=== PATIENT | female | born 1945 | race Caucasian/White ===

== ENCOUNTER 2023-06-29 11:50 | Outpatient (CLI) | payer MEDICARE ==
--- NOTE | 2023-06-29 12:22 | XRAY Report ---
PROCEDURE: Hip w/Pelvis 2-3V RT INDICATIONS: RIGHT HIP PAIN TECHNIQUE: AP pelvis with lateral view(s) of the right hip(s). COMPARISON: None. FINDINGS: Bones: Bilateral femoral intramedullary ector and dynamic screw fixation. Where visualized, the hardwa re appears intact without surrounding lucency or fracture. No acute fractures or dislocations. No hurley spicious bony lesions. Degenerative changes of the visualized lower lumbar spine , sacroiliac joints and pubic symphysis. There is a 2.8 cm chronic osseous fragment adjacent to the left acetabulum withi n the soft tissues, likely sequela of prior trauma or surgery. Soft tissues: No suspicious soft tissue calcifications or masses. IMPRESSION: Bilateral femoral intramedullary ector and dynamic screw fixation. The hardware appears intact where vi sualized without evidence of complication. No acute osseous abnormalities. Reviewed by: Desean Joe MD on 06/29/2023 12:20 PM PDT Approved by: Desean Joe MD on 06/29/2023 12:20 PM PDT Station ID: [id number]
== END 2023-06-29 23:59 | disposition home or self-care (01) ==
LOC: DI.S 11:50
PROVIDERS: ATTEND Physician Assistant
DX: M25.551 Pain in right hip (principal)

== ENCOUNTER 2023-10-23 08:00 | Outpatient (CLI) | payer MEDICARE ==
[2023-10-23 15:03] LABS: BILIRUBIN,URINE NEGATIVE (NEGATIVE); GLUCOSE, URINE (UA) 100 mg/dL (NEGATIVE); KETONES,URINE (UA) NEGATIVE (NEGATIVE); LEUKOCYTE ESTERASE, URINE LARGE (NEGATIVE); NITRITE,URINE POSITIVE (NEGATIVE); OCCULT BLOOD,URINE MODERATE (NEGATIVE); PROTEIN,URINE 100 mg/dL (NEGATIVE); UROBILINOGEN,URINE 1 (NORMAL) E.U./dL (NORMAL)
[2023-10-23 15:32] LABS: CLARITY,URINE CLOUDY (CLEAR)
[2023-10-23 15:50] LABS: SQUAMOUS EPITHELIAL CELL,UR FEW Squamous (<= Few); WBC,URINE >25 /HPF (0-5)
[2023-10-23 15:51] LABS: BACTERIA,URINE Many /HPF (None Seen)
== END 2023-10-23 23:59 | disposition home or self-care (01) ==
LOC: LAB.S 08:00
PROVIDERS: ATTEND Emergency Medicine
DX: R30.0 Dysuria (principal)
CPT/HCPCS: 81001; 87086; 87181